=== PATIENT | male | born 1975 | race Two or more races ===

== ENCOUNTER 2017-09-13 10:43 | Emergency (ER) | payer SELFPAY ==
[~2017-09-13] VITALS: Ht 172.7 cm; Wt 94.3 kg
[2017-09-13 10:52] VITALS: BP 165/102
[2017-09-13] MEDS ORDERED: cefTRIAXone SOD 1,000 MG VL IM ONE (12:15)
== END 2017-09-13 12:40 | disposition home or self-care (01) ==
LOC: ER 10:43
DX: S61.231A Puncture wound without foreign body of left index finger without damage to nail, initial encounter (principal); L08.9 Local infection of the skin and subcutaneous tissue, unspecified; W22.8XXA Striking against or struck by other objects, initial encounter; Y93.89 Activity, other specified; Y99.8 Other external cause status; Y92.89 Other specified places as the place of occurrence of the external cause
CPT/HCPCS: 96372; 99283; J0696